=== PATIENT | female | born 1945 | race Caucasian/White ===

== ENCOUNTER 2021-01-03 12:15 | Outpatient (CLI) | payer MEDICARE, OTHER, SELFPAY ==
--- NOTE | ~2021-01-03 | CT_ITS ---
EXAMINATION: CT abdomen pelvis w con INDICATION: Diffuse abdominal pain TECHNIQUE: Computed tomographic images of the abdomen and pelvis were obtained after the administrati on of 100 cc of Omnipaque 350 intravenous contrast. The dose-length product (DLP) was 602.51 mGy-cm. Automated exposure control and iterative reconstruction technique were employed. COMPARISON: 09/17/2018 FINDINGS: Minimal dependent atelectasis is present in the lung bases. The heart size is normal. There has been interval left mastectomy. The liver is diffusely low in attenuation when compared with the spleen, consistent with hepatic steatosis. The spleen, pancreas, gallbladder, and adrenal glands are normal. The kidneys are unremarkable. There is calcified atherosclerosis of the aorta and many of the other arteries. No pathologically enlarged abdominal or pelvic lymph nodes are identified. There is no free intraperitoneal gas or evidence of bowel obstruction. Colonic diverticulosis is present witho ut evidence of diverticulitis. Uterine fibroids are noted. There is severe lumbar spondylosis. Coloni c diverticulosis is present without evidence of diverticulitis. IMPRESSION: 1. No CT correlate for the patient's symptoms. Reviewed, dictated and finalized at location B.
[2021-01-03 12:51] LABS: Estimated Glomerular Filt Rate > 60
== END 2021-01-03 12:16 | disposition home or self-care (01) ==
PROVIDERS: PCP Family Medicine Adolescent Medicine; Visit Provider Physician Assistant
DX: R19.00 Intra-abdominal and pelvic swelling, mass and lump, unspecified site (principal)
CPT/HCPCS: 74177; Q9967